=== PATIENT | female | born 1970 | race Caucasian/White ===

== ENCOUNTER → 2017-07-15 | Outpatient (CLI) | payer MEDICARE, MEDICAID ==
--- NOTE | 2017-07-28 23:54 | ONC ---
[address] [address] RADIATION ONCOLOGY NOTE Name: CYNTHIA MOYER Room: [facility]#: [id number] Admission: 07/15/17 Attend Phys: Jim Martinez MD Discharge: Date of : 72 Report #: [id number] THIS REPORT FOR: //name// CC: Jim Calderon DATE OF SERVICE: 07/15/2017 [facility] REFERRING PHYSICIANS: Include Dr. Perez, Dr. Lopez, Dr. Obinna Falk and also Dr. Jordan Calderon. 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 She indicated that this was starting to grow over the last year. She had an initial resection in 07/2016 where she underwent Mohs surgery. She then had a new palpable lesion on the right ear, which grew significantly over time and was found to be a poorly differentiated squamous cell carcinoma. She underwent a wide local excision at [facility]; however, the deep margins were positive. She also had a reconstruction with a right ALT flap, which failed, so then she had to have a muscle rotational flap. So she was referred to Dr. Perez for possible further surgery. She had a PET scan performed on 06/12/2017 and she had a large mass involving the posterior lateral right neck and right occipital area consistent with the patient's known primary and its SUV was 13.22. She then went on to undergo surgical resection on 06/23/2017 and that was performed by Dr. Perez. The procedure that was performed, she had a total right auriculectomy, she had a total parotidectomy with dissection and preservation of the facial nerve with a radical neck dissection, resection of a malignant neoplasm and had a latissimus myocutaneous flap. The pathology revealed an invasive poorly differentiated squamous cell carcinoma. The margins were positive for cancer. 2/7 lymph nodes were involved with cancer. There was extracapsular extension present. Perineural invasion was present. This was staged as a O4mR3H2 (Stage IV) squamous cell cancer of the skin. She was referred for consideration for radiation therapy. She is also seeing the medical oncologist, Dr. Falk, later today for [place] [address] RADIATION ONCOLOGY NOTE Name: JOÃOCYNTHIA Room: [facility]#: [id number] Admission: 07/15/17 Attend Phys: Jim Martinez MD Discharge: Date of : 72 Report #: [id number] PAST MEDICAL AND SURGICAL HISTORY: She had cataract removal, retinal detachment repaired in 2000, bilateral breast reductions, salpingo-oophorectomy, appendectomy in 1975, as well as dental surgery, cyst incision and drainage, Mohs surgery as described above. She also has the Netherton syndrome. MEDICATIONS: She takes 15 mg immediate release morphine every 4 hours as needed, Aquaphor and Restasis eyedrops. ALLERGIES: CODEINE, ERYTHROMYCIN, KEFLEX, PENICILLIN, PERCOCET, SULFA, CHLOROHYDRINS. OBSTETRICS AND GYNECOLOGIC: The patient had menarche around 15-16 years of age. Last menstrual period was around 05/05/2017. She is 0, para 0. FAMILY HISTORY: Aunt had chronic lymphocytic leukemia. Cousin had breast cancer, another cousin had esophageal cancer. There is another sister with Netherton syndrome. SOCIAL HISTORY: She is single. Ethanol: she only drinks alcohol containing beverages socially. Cigarettes: she does not smoke. REVIEW OF SYSTEMS: VITAL SIGNS: Weight gain and weight loss, goes up and down. SKIN: She denied having any color changes or itching. LYMPH NODES: She denied having enlarged or painful glands in the neck. ENDOCRINE: She has a little bit of increased thirst. HEMATOLOGY/IMMUNOLOGY: She denied having any anemia or recent bleeding. MUSCULOSKELETAL: She denied having any arthritis or painful swollen joints. HEAD AND NECK: She has difficulty swallowing, has a feeding tube in since her operation. She says she has some voice changes since her operation. RESPIRATORY: She denied having any shortness of breath. CARDIOVASCULAR: She denied having any palpitations. GASTROINTESTINAL: She denied having nausea or vomiting. NEUROLOGIC: She denied having any focal weakness. PHYSICAL EXAMINATION: VITAL SIGNS: Height 5 feet 0 inches, weight 107.4 pounds, blood pressure 123/75, pulse 96. GENERAL PSYCHIATRIC: She was alert, oriented, and in no acute distress. LYMPH NODES: She had no cervical or supraclavicular lymphadenopathy. EYES: She wears glasses. She is blind in the left eye. The right eye's extraocular movement is intact. HEAD, EARS, NOSE AND THROAT: Mouth had no suspicious visible lesions or suspicious palpable lesions. She has a graft, a tissue flap [place] [address] RADIATION ONCOLOGY NOTE Name: CYNTHIA MOYER Room: [facility]#: [id number] Admission: 07/15/17 Attend Phys: Jim Martinez MD Discharge: Date of : 72 Report #: [id number] had a resection on the right side and that is bandaged. Left ear is intact. HEART: Had a regular rate and rhythm without murmur. LUNGS: were clear to auscultation. ABDOMEN: Not tender. Spleen was not palpable. Liver was at the costal margin. EXTREMITIES: No clubbing, cyanosis or edema. NEUROLOGIC: Cranial nerves II-XII were intact. Sensation was intact. She has 5/5 strength in her extremities. 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 The patient was offered adjuvant radiation therapy with consideration for chemotherapy, to help reduce the chance of local recurrence. With surgical resection alone, she has positive margins, so probably has significant risk of local recurrence and radiation therapy can help reduce the risk of recurrence. The recurrence rate for squamous cell carcinomas can be found from The Principles and Practices of Radiation Oncology book and the Rachel experience with squamous cell carcinomas. They had a 92% control rate at 4 years and the efficacy of radiation therapy can be found in one of the articles. The results of Mohs resection and postoperative radiotherapy for head and neck cancer with incidental perineural invasion was published in 2013 in the [employer] Journal [employer] Otolaryngology, and one of the authors was Dr. Bergeron. Overall, the 5 year overall neck control when they received elective radiation therapy was 100% versus 82% if they did not receive radiation therapy. So the risks, benefits and logistics of radiation therapy were discussed with the patient in detail. She gave her witnessed informed consent to proceed with radiation therapy. She would be a good candidate for Intensity Modulated Radiation Therapy. Thank you very much for this consult. <ELECTRONICALLY SIGNED> By: Jim Martinez MD 07/28/17 [id number] Martinez MD /nt
== END ==
LOC: M.RTH 01:25
DX: C44.92 Squamous cell carcinoma of skin, unspecified (principal); Z72.89 Other problems related to lifestyle; Z90.49 Acquired absence of other specified parts of digestive tract; Z90.722 Acquired absence of ovaries, bilateral